=== PATIENT | female | born 1955 | race Two or more races ===

== ENCOUNTER → 2017-07-10 | Outpatient (CLI) | payer MEDICAID | END | disposition home or self-care (01) | LOC: HKI 10:11 | DX: M25.861 Other specified joint disorders, right knee (principal); M25.561 Pain in right knee | CPT/HCPCS: 73564; 73564-RT ==

== ENCOUNTER → 2017-11-28 | Outpatient (CLI) | payer OTHER | END | disposition home or self-care (01) | LOC: HKI 14:27 | DX: M23.251 Derangement of posterior horn of lateral meniscus due to old tear or injury, right knee (principal); M25.861 Other specified joint disorders, right knee | CPT/HCPCS: Z7500 ==

== ENCOUNTER → 2018-03-12 | Outpatient (CLI) | payer OTHER | END | disposition home or self-care (01) | LOC: HKI 11:06 | DX: Z01.818 Encounter for other preprocedural examination (principal) | CPT/HCPCS: Z7500 ==